=== PATIENT | male | born 1965 | race Caucasian/White ===

== ENCOUNTER 2020-03-25 16:33 | Observation (INO) | payer BC ==
--- NOTE | 2020-03-25 16:45 | EDM.PDOC ---
ED HPI GENERAL MEDICAL PROBLEM - General Chief Complaint: Chest Pain Stated Complaint: ARMS TINGLING, HEARTBURN Time Seen by Provider: 03/25/20 16:40 Source of Information: Reports: Patient History Limitations: Reports: No Limitations - History of Present Illness INITIAL COMMENTS - FREE TEXT/NARRATIVE: Patient is a 54-year-old male who presents today for left-sided chest pain with tingling to his left arm. Pain states the pain is been there on and off for the past 3 days not associated with any events. Patient not take any medication for the pain. Patient denies any shortness of breath fever chills or cough. Patient states that he does not regularly follow-up with your doctor and did have high blood pressure in the few years ago but stopped taking medications. Chest Pain Score (Numeric/FACES): 5 - Related Data Allergies Allergy/AdvReac Type Severity Reaction Status Date / Time No Known Allergies Allergy Verified 03/25/20 20:45 Home Meds: Home Meds Adalimumab [Humira Pen] 1 dose INJECT ASDIRECTED 03/25/20 [History] Acetaminophen [Tylenol] 650 mg PO Q4H PRN tablet 03/26/20 [Rx] Aspirin 81 mg PO DAILY tab.chew 03/26/20 [Rx] amLODIPine [Norvasc] 5 mg PO DAILY 30 Days #30 tablet 03/26/20 [Rx] atorvaSTATin [Lipitor] 10 mg PO BEDTIME 30 Days #30 tab 03/26/20 [Rx] ED ROS GENERAL - Review of Systems Review Of Systems: Comprehensive ROS is negative, except as noted in HPI. ED EXAM, GENERAL - Physical Exam Exam: See Below Exam Limited By: No Limitations General Appearance: Alert, WD/WN, No Apparent Distress Head: Atraumatic Neck: Normal Inspection Respiratory/Chest: No Respiratory Distress, Lungs Clear, Normal Breath Sounds, No Accessory Muscle Use Cardiovascular: Normal Peripheral Pulses, Regular Rate, Rhythm GI/Abdominal: Normal Bowel Sounds, Soft, Non-Tender Extremities: Normal Inspection Neurological: Alert, Oriented Skin Exam: No Rash #1 Interpretation EKG Date: 03/25/20 Time: 16:35 Rhythm: NSR Rate (Beats/Min): 80 [place]: Normal ST-T: Normal Course - Vital Signs Last Recorded V/S: Last Vital Signs Temp 97.4 F 03/26/20 11:04 Pulse 65 03/26/20 11:04 Resp 13 03/26/20 11:04 BP 135/89 03/26/20 11:04 Pulse Ox 96 03/26/20 11:04 - Orders/Labs/Meds Labs: Laboratory Tests 03/25/20 03/25/20 03/25/20 Range/Units 16:41 16:41 16:41 WBC 7.26 (4.0-11.0) K/uL RBC 5.47 (4.50-5.90) M/uL Hgb 15.7 (13.0-17.0) g/dL Hct 47.0 (38.0-50.0) % MCV 85.9 (80.0-98.0) fL MCH 28.7 (27.0-32.0) pg MCHC 33.4 (31.0-37.0) g/dL RDW Std Deviation 46.8 (28.0-62.0) fl RDW Coeff of Franko 15 (11.0-15.0) % Plt Count 200 (150-400) K/uL MPV 10.30 (7.40-12.00) fL Neut % (Auto) 62.7 (48.0-80.0) % Lymph % (Auto) 25.3 (16.0-40.0) % Brule % (Auto) 8.5 (0.0-15.0) % Eos % (Auto) 3.4 (0.0-7.0) % Baso % (Auto) 0.1 (0.0-1.5) % Neut # (Auto) 4.5 (1.4-5.7) K/uL Lymph # (Auto) 1.8 (0.6-2.4) K/uL Brule # (Auto) 0.6 (0.0-0.8) K/uL Eos # (Auto) 0.3 (0.0-0.7) K/uL Baso # (Auto) 0.0 (0.0-0.1) K/uL Nucleated RBC % 0.0 /100WBC Nucleated RBCs # 0 K/uL Sodium 137 (136-148) mmol/L Potassium 3.7 (3.5-5.1) mmol/L Chloride 102 (98-107) mmol/L Carbon Dioxide 24.8 (21.0-32.0) mmol/L BUN 14 (7.0-18.0) mg/dL Creatinine 1.2 (0.8-1.3) mg/dL Est Cr Clr Drug Dosing 75.44 mL/min Estimated GFR (MDRD) > 60.0 ml/min Glucose 135 H (74-106) mg/dL Calcium 9.2 (8.5-10.1) mg/dL Total Bilirubin 0.3 (0.2-1.0) mg/dL AST 19 (15-37) IU/L ALT 53 (14-63) IU/L Alkaline Phosphatase 68 (46-116) U/L Creatine Kinase 138 (26-308) U/L Troponin I < 0.050 (0.000-0.056) ng/mL B-Natriuretic Peptide 25 (<100) PG/ML Total Protein 7.7 (6.4-8.2) g/dL Albumin 3.8 (3.4-5.0) g/dL Globulin 3.9 (2.6-4.0) g/dL Albumin/Globulin Ratio 1.0 (0.9-1.6) Influenza Type A RNA (NEGATIVE) Influenza Type B RNA (NEGATIVE) SARS-CoV-2 RNA ([place]) (NEGATIVE) 03/25/20 Range/Units 17:45 WBC (4.0-11.0) K/uL RBC (4.50-5.90) M/uL Hgb (13.0-17.0) g/dL Hct (38.0-50.0) % MCV (80.0-98.0) fL MCH (27.0-32.0) pg MCHC (31.0-37.0) g/dL RDW Std Deviation (28.0-62.0) fl RDW Coeff of Franko (11.0-15.0) % Plt Count (150-400) K/uL MPV (7.40-12.00) fL Neut % (Auto) (48.0-80.0) % Lymph % (Auto) (16.0-40.0) % Brule % (Auto) (0.0-15.0) % Eos % (Auto) (0.0-7.0) % Baso % (Auto) (0.0-1.5) % Neut # (Auto) (1.4-5.7) K/uL Lymph # (Auto) (0.6-2.4) K/uL Brule # (Auto) (0.0-0.8) K/uL Eos # (Auto) (0.0-0.7) K/uL Baso # (Auto) (0.0-0.1) K/uL Nucleated RBC % /100WBC Nucleated RBCs # K/uL Sodium (136-148) mmol/L Potassium (3.5-5.1) mmol/L Chloride (98-107) mmol/L Carbon Dioxide (21.0-32.0) mmol/L BUN (7.0-18.0) mg/dL Creatinine (0.8-1.3) mg/dL Est Cr Clr Drug Dosing mL/min Estimated GFR (MDRD) ml/min Glucose (74-106) mg/dL Calcium (8.5-10.1) mg/dL Total Bilirubin (0.2-1.0) mg/dL AST (15-37) IU/L ALT (14-63) IU/L Alkaline Phosphatase (46-116) U/L Creatine Kinase (26-308) U/L Troponin I (0.000-0.056) ng/mL B-Natriuretic Peptide (<100) PG/ML Total Protein (6.4-8.2) g/dL Albumin (3.4-5.0) g/dL Globulin (2.6-4.0) g/dL Albumin/Globulin Ratio (0.9-1.6) Influenza Type A RNA NEGATIVE (NEGATIVE) Influenza Type B RNA NEGATIVE (NEGATIVE) SARS-CoV-2 RNA ([place]) NEGATIVE (NEGATIVE) Meds: Medications Discontinued Medications Generic Name Dose Route Start Last Admin Trade Name Freq PRN Reason Stop Dose Admin Acetaminophen 650 mg 03/25/20 20:01 Tylenol PO Q4H PRN Pain (Mild 1-3)/fever Albuterol/Ipratropium 3 ml 03/25/20 20:01 Duoneb 3.0-0.5 Mg/3 Ml NEB Q4HRRT PRN Shortness Of Breath/wheezing Amlodipine Besylate 5 mg 03/25/20 20:15 03/26/20 09:00 Norvasc PO 5 mg DAILY SRI Administration Aspirin 325 mg 03/25/20 16:51 03/25/20 17:04 Aspirin PO 03/25/20 16:52 Not Given ONETIME ONE Aspirin 324 mg 03/25/20 17:03 03/25/20 17:07 Aspirin PO 03/25/20 17:04 324 mg ONETIME ONE Administration Aspirin 81 mg 03/26/20 09:00 03/26/20 08:50 Aspirin PO 81 mg DAILY SRI Administration Atorvastatin Calcium 20 mg 03/26/20 21:00 Lipitor PO BEDTIME SRI Departure - Departure Time of Disposition: 18:45 Disposition: Refer to Observation Condition: Good Clinical Impression: Chest pain - Assessment/Plan Assessment:: Is a 54-year-old male presents today for left-sided pain. Patient has a heart score of 3 will likely obtain x-ray trend troponins and possibly discharged home. Patient also given aspirin in ED.
[2020-03-25] MEDS ORDERED: Aspirin 325 MG Tab PO ONE (16:51)
[2020-03-25] MEDS ORDERED: Aspirin 81 MG Tab.Chew PO ONE (17:03)
--- NOTE | 2020-03-25 17:33 | CR ---
INDICATION: chest pain TECHNIQUE: Chest 1 view. COMPARISON: 06/06/14 FINDINGS: Cardiovascular and mediastinum: Heart size and vasculature are normal in caliber and appearance. Mediastinum is within normal limits. Lungs and pleural space: Lungs are clear. No sign of infiltrate or mass. No sign of pleural effusion. No pneumothorax. Bones and soft tissues: No significant findings. IMPRESSION: Unremarkable chest. Dictated by: Fei Bey MD @ 03/25/2020 17:32:13 (Electronically Signed)
[2020-03-25 17:42] LABS: BLOOD UREA NITROGEN,BUN 14 mg/dL (7.0-18.0); CARBON DIOXIDE,CO2 24.8 mmol/L (21.0-32.0); GLUCOSE RANDOM 135 mg/dL (74-106)
[2020-03-25 17:51] LABS: CHLORIDE,CL 102 mmol/L (98-107); POTASSIUM,K 3.7 mmol/L (3.5-5.1); SODIUM,NA 137 mmol/L (136-148)
[2020-03-25 18:32] LABS: CORONAVIRUS COVID-19 NAA NEGATIVE (NEGATIVE); INFLUENZA A NAA NEGATIVE (NEGATIVE); INFLUENZA B NAA NEGATIVE (NEGATIVE)
[2020-03-25] MEDS ORDERED: Albuterol/Ipratropium 3.0-0.5 MG/3 ML Neb Soln NEB PRN (20:01)
[2020-03-25] MEDS ORDERED: Acetaminophen 325 MG Tab PO PRN (20:01)
[2020-03-25] MEDS: amLODIPine 5 MG Tab PO SCH (21:10)
--- NOTE | 2020-03-25 21:30 | PCM.HP.2 ---
H&P History of Present Illness - General Date of Service: 03/25/20 Admit Problem/Dx: Admission Diagnosis/Problem Admission Diagnosis/Problem Chest pain in adult - History of Present Illness Initial Comments - Free Text/Narative: Patient is a 54-year-old male with PMH of HTN no on any medications, Inflammatory bowel disease on Humira every 2 weeks, High BMI, medical non- compliance who presents today for left-sided chest pain with tingling to his left arm. Per patient the pain has been there on and off for the past 3 days not associated with any events, aggravated by exertion. Patient not take any medication for the pain. Patient denies any shortness of breath fever chills or cough. Patient hasn't seen any doctor in few years, states he was supposed to be taking medication for hs high BP but has stopped taking them. Denied any h/o stroke, ACS. In the ER EKG was done which showed no acte ischemic changes, mild flattening of T waves, CXR was negative for any acute process, COVID negative.. 1st troponin was negative. Patient was admitted for further care. Chest Pain Score (Numeric/FACES): 5 - Related Data Allergies/Adverse Reactions: Allergies Allergy/AdvReac Type Severity Reaction Status Date / Time No Known Allergies Allergy Verified 03/25/20 20:45 Home Medications: Home Meds Adalimumab [Humira Pen] 1 dose INJECT ASDIRECTED 03/25/20 [History] Past Medical History HEENT History: Reports: None Cardiovascular History: Reports: None Respiratory History: Reports: None Gastrointestinal History: Reports: Other (See Below) Other Gastrointestinal History: ulcertive colitis Genitourinary History: Reports: None Musculoskeletal History: Reports: None Neurological History: Reports: None Psychiatric History: Reports: None Endocrine/Metabolic History: Reports: None Hematologic History: Reports: None Oncologic (Cancer) History: Reports: None Dermatologic History: Reports: None - Infectious Disease History Infectious Disease History: Reports: None Social & Family History - Tobacco Use Tobacco Use Status *Q: Never Tobacco User - Caffeine Use Caffeine Use: Reports: None - Recreational Drug Use Recreational Drug Use: No H&P Review of Systems - Review of Systems: Review Of Systems: See Below General: Denies: Fever, Chills, Malaise Pulmonary: Denies: Shortness of Breath, Wheezing Cardiovascular: Reports: Chest Pain (improved). Denies: Palpitations, Dyspnea on Exertion, Lightheadedness, Syncope Gastrointestinal: Denies: Abdominal Pain, Anorexia, Black Stool Genitourinary: Denies: Dysuria, Frequency, Burning Exam - Exam Exam: See Below - Vital Signs Vital Signs: Last Vital Signs Temp 36.8 C 03/25/20 20:25 Pulse 71 03/25/20 20:25 Resp 16 03/25/20 20:25 BP 135/85 03/25/20 21:10 Pulse Ox 96 03/25/20 20:25 Weight: 117.934 kg - Exam Quality Assessment: Supplemental Oxygen General: Alert, Oriented Neck: Supple, Trachea Midline Lungs: Clear to Auscultation, Normal Respiratory Effort Cardiovascular: Regular Rate, Regular Rhythm, Normal S1, Normal S2 GI/Abdominal Exam: Normal Bowel Sounds, Soft, Distended - Patient Data Lab Results Last 24 hrs: Laboratory Results - last 24 hr 03/25/20 03/25/20 03/25/20 Range/Units 16:41 16:41 16:41 WBC 7.26 (4.0-11.0) K/uL RBC 5.47 (4.50-5.90) M/uL Hgb 15.7 (13.0-17.0) g/dL Hct 47.0 (38.0-50.0) % MCV 85.9 (80.0-98.0) fL MCH 28.7 (27.0-32.0) pg MCHC 33.4 (31.0-37.0) g/dL RDW Std Deviation 46.8 (28.0-62.0) fl RDW Coeff of Franko 15 (11.0-15.0) % Plt Count 200 (150-400) K/uL MPV 10.30 (7.40-12.00) fL Neut % (Auto) 62.7 (48.0-80.0) % Lymph % (Auto) 25.3 (16.0-40.0) % [place]win % (Auto) 8.5 (0.0-15.0) % Eos % (Auto) 3.4 (0.0-7.0) % Baso % (Auto) 0.1 (0.0-1.5) % Neut # (Auto) 4.5 (1.4-5.7) K/uL Lymph # (Auto) 1.8 (0.6-2.4) K/uL [place]win # (Auto) 0.6 (0.0-0.8) K/uL Eos # (Auto) 0.3 (0.0-0.7) K/uL Baso # (Auto) 0.0 (0.0-0.1) K/uL Nucleated RBC % 0.0 /100WBC Nucleated RBCs # 0 K/uL Sodium 137 (136-148) mmol/L Potassium 3.7 (3.5-5.1) mmol/L Chloride 102 (98-107) mmol/L Carbon Dioxide 24.8 (21.0-32.0) mmol/L BUN 14 (7.0-18.0) mg/dL Creatinine 1.2 (0.8-1.3) mg/dL Est Cr Clr Drug Dosing 75.44 mL/min Estimated GFR (MDRD) > 60.0 ml/min Glucose 135 H (74-106) mg/dL Calcium 9.2 (8.5-10.1) mg/dL Total Bilirubin 0.3 (0.2-1.0) mg/dL AST 19 (15-37) IU/L ALT 53 (14-63) IU/L Alkaline Phosphatase 68 (46-116) U/L Creatine Kinase 138 (26-308) U/L Troponin I < 0.050 (0.000-0.056) ng/mL B-Natriuretic Peptide 25 (<100) PG/ML Total Protein 7.7 (6.4-8.2) g/dL Albumin 3.8 (3.4-5.0) g/dL Globulin 3.9 (2.6-4.0) g/dL Albumin/Globulin Ratio 1.0 (0.9-1.6) Influenza Type A RNA (NEGATIVE) Influenza Type B RNA (NEGATIVE) SARS-CoV-2 RNA ([place]) (NEGATIVE) 03/25/20 03/25/20 Range/Units 17:45 20:15 WBC (4.0-11.0) K/uL RBC (4.50-5.90) M/uL Hgb (13.0-17.0) g/dL Hct (38.0-50.0) % MCV (80.0-98.0) fL MCH (27.0-32.0) pg MCHC (31.0-37.0) g/dL RDW Std Deviation (28.0-62.0) fl RDW Coeff of Franko (11.0-15.0) % Plt Count (150-400) K/uL MPV (7.40-12.00) fL Neut % (Auto) (48.0-80.0) % Lymph % (Auto) (16.0-40.0) % [place]win % (Auto) (0.0-15.0) % Eos % (Auto) (0.0-7.0) % Baso % (Auto) (0.0-1.5) % Neut # (Auto) (1.4-5.7) K/uL Lymph # (Auto) (0.6-2.4) K/uL [place]win # (Auto) (0.0-0.8) K/uL Eos # (Auto) (0.0-0.7) K/uL Baso # (Auto) (0.0-0.1) K/uL Nucleated RBC % /100WBC Nucleated RBCs # K/uL Sodium (136-148) mmol/L Potassium (3.5-5.1) mmol/L Chloride (98-107) mmol/L Carbon Dioxide (21.0-32.0) mmol/L BUN (7.0-18.0) mg/dL Creatinine (0.8-1.3) mg/dL Est Cr Clr Drug Dosing mL/min Estimated GFR (MDRD) ml/min Glucose (74-106) mg/dL Calcium (8.5-10.1) mg/dL Total Bilirubin (0.2-1.0) mg/dL AST (15-37) IU/L ALT (14-63) IU/L Alkaline Phosphatase (46-116) U/L Creatine Kinase (26-308) U/L Troponin I < 0.050 (0.000-0.056) ng/mL B-Natriuretic Peptide (<100) PG/ML Total Protein (6.4-8.2) g/dL Albumin (3.4-5.0) g/dL Globulin (2.6-4.0) g/dL Albumin/Globulin Ratio (0.9-1.6) Influenza Type A RNA NEGATIVE (NEGATIVE) Influenza Type B RNA NEGATIVE (NEGATIVE) SARS-CoV-2 RNA ([place]) NEGATIVE (NEGATIVE) Result Diagrams: 03/25/20 16:41 03/25/20 16:41 Sepsis Event Note - Evaluation Sepsis Screening Result: No Definite Risk - Focused Exam Vital Signs: Vital Signs Temp Pulse Resp BP BP Pulse Ox 03/25/20 21:10 135/85 03/25/20 20:25 36.8 C 71 16 140/78 96 03/25/20 18:47 75 18 161/80 H 97 03/25/20 18:10 79 16 158/77 H 97 03/25/20 16:50 36.3 C 80 16 162/82 H 97 - Problem List (1) Chest pain SNOMED Code(s): 46562674 ICD Code: R07.9 - CHEST PAIN, UNSPECIFIED Status: Acute Current Visit: Yes (2) HTN (hypertension) SNOMED Code(s): 42472647 ICD Code: I10 - ESSENTIAL (PRIMARY) HYPERTENSION Status: Acute Current Visit: Yes (3) Inflammatory bowel disease SNOMED Code(s): 14194117 ICD Code: K52.9 - NONINFECTIVE GASTROENTERITIS AND COLITIS, UNSPECIFIED Status: Acute Current Visit: Yes (4) BMI 39.0-39.9,adult SNOMED Code(s): 001858189 ICD Code: Z68.39 - BODY MASS INDEX [BMI] 39.0-39.9, ADULT Status: Acute Current Visit: Yes Problem List Initiated/Reviewed/Updated: Yes Orders Last 24hrs: Active Orders 24 hr Category Date Time Status Patient Status [ADT] Routine ADT 03/25/20 18:32 Active Ambulate [RC] ASDIRECTED Care 03/25/20 20:01 Active Antiembolic Devices [RC] PER UNIT ROUTINE Care 03/25/20 20:03 Active EKG Documentation Completion [RC] STAT Care 03/25/20 16:51 Active Oxygen Therapy [RC] PRN Care 03/25/20 20:01 Active Pulse Oximetry [RC] PRN Care 03/25/20 20:02 Active RT Aerosol Therapy [RC] ASDIRECTED Care 03/25/20 20:03 Active VTE/DVT Education [RC] PER UNIT ROUTINE Care 03/25/20 20:01 Active Vital Signs [RC] Q4H Care 03/25/20 20:01 Active Heart Healthy Diet [DIET] Diet 03/25/20 Dinner Active Echo Comp wo Cont [US] Routine Exams 03/25/20 20:03 Ordered GLYCOSYLATED HEMOGLOBIN,HGBA1C [CHEM] AM Lab 03/26/20 05:11 Ordered LIPID PANEL [CHEM] AM Lab 03/26/20 05:11 Ordered TROPONIN I [CHEM] Routine Lab 03/25/20 23:00 Ordered TSH [CHEM] AM Lab 03/26/20 05:11 Ordered Acetaminophen [TylenoL] Med 03/25/20 20:01 Active 650 mg PO Q4H PRN Albuterol/Ipratropium [DuoNeb 3.0-0.5 MG/3 ML] Med 03/25/20 20:01 Active 3 ml NEB Q4HRRT PRN Aspirin Med 03/26/20 09:00 Active 81 mg PO DAILY amLODIPine [Norvasc] Med 03/25/20 20:15 Active 5 mg PO DAILY atorvaSTATin [Lipitor] Med 03/26/20 21:00 Active 20 mg PO BEDTIME Sequential Compression Device [OM.PC] Per Unit Routine Oth 03/25/20 20:02 Ordered Resuscitation Status Routine Resus Stat 03/25/20 20:01 Ordered Medication Orders Acetaminophen (Tylenol) 650 mg PO Q4H PRN PRN Reason: Pain (Mild 1-3)/fever Albuterol/Ipratropium (Duoneb 3.0-0.5 Mg/3 Ml) 3 ml NEB Q4HRRT PRN PRN Reason: Shortness Of Breath/wheezing Amlodipine Besylate (Norvasc) 5 mg PO DAILY [facility] Last Admin: 03/25/20 21:10 Dose: 5 mg Documented by: PASTGEN Aspirin (Aspirin) 81 mg PO DAILY [facility] Atorvastatin Calcium (Lipitor) 20 mg PO BEDTIME [facility] Assessment/Plan Comment:: 54 y/o M admitted for ACS rule out, HEART score 4 admit to tele trend troponin start Antihypertensive Amlodipine for now Low dose ASA, statin Check HbA1c, TSH, Lipid panel Check UA Obtain 2D ECHO Needs a stress test which is not available at the hospital, so has to be done ou tpatient basis.
[2020-03-26 06:05] LABS: HEMOGLOBIN A1C 5.5 %
[2020-03-26] MEDS ORDERED: Aspirin 81 MG Tab.Chew PO SCH (09:00)
[2020-03-26] MEDS: amLODIPine 5 MG Tab PO SCH (09:00)
--- NOTE | 2020-03-26 09:22 | PCM.DCSUM1 ---
<Roshan Laura - Last Filed: 03/26/20 10:22> Discharge Summary - Hospital Course Free Text/Narrative:: Patient is a 54-year-old male with a significant past medical history of hypertension uncontrolled and noncompliant with medication, ulcerative colitis on Humira and morbid obesity; presenting to the ED on March 25, 2020 secondary to left-sided chest pain with left arm numbness and tingling for 3 days. Patient endorses no significant aggravating/alleviating factors and mention pain was constant and felt more like a pressure. ED course: EKG suggested no ST elevation/depression however some nonspecific T wave changes. Chest x-ray negative. Blood pressure marginally elevated at 160/90. Hospital course: Admitted overnight for ACS rule out: Troponin x3 - telemetry otherwise unremarkable. Started on amlodipine 5 good response with final blood pressure 120/75. Laboratory otherwise suggest no acute derangements CBC/CMP negative. A1c 5.5 lipid panel also nominal. Covid negative. Echocardiogram ordered: Results pending Discussed elevated blood pressure ramifications and medical noncompliance. Patient understood and agreed. Patient set up with follow-up with PCP Outpatient prescription for stress test provided to patient. Sent home with Atorvastatin 10, amlodipine 5 and advised to continue 81 mg ASA daily Patient discharged in stable condition. Disposition Home: Condition: Stable Follow-up: PCP - Discharge Data Discharge Date: 03/26/20 Discharge Disposition: Home, Self-Care 01 Condition: Good - Referral to Home Health Primary Care Physician: PCP None - Patient Instructions Diet: Heart Healthy Diet - Discharge Plan *PRESCRIPTION DRUG MONITORING PROGRAM REVIEWED*: No *COPY OF PRESCRIPTION DRUG MONITORING REPORT IN PATIENT BRANDON: No Prescriptions/Med Rec: atorvaSTATin [Lipitor] 10 mg PO BEDTIME 30 Days #30 tab amLODIPine [Norvasc] 5 mg PO DAILY 30 Days #30 tablet Home Medications: Home Meds Adalimumab [Humira Pen] 1 dose INJECT ASDIRECTED 03/25/20 [History] Acetaminophen [Tylenol] 650 mg PO Q4H PRN tablet 03/26/20 [Rx] Aspirin 81 mg PO DAILY tab.chew 03/26/20 [Rx] amLODIPine [Norvasc] 5 mg PO DAILY 30 Days #30 tablet 03/26/20 [Rx] atorvaSTATin [Lipitor] 10 mg PO BEDTIME 30 Days #30 tab 03/26/20 [Rx] Patient Handouts: Nonspecific Chest Pain, Adult, [id number], Hypertension, Adult, [id number], Atorvastatin tablets, Amlodipine Oral Tablets Forms: ED Department Discharge Referrals: Justin Fuentes MD [Ordering Only Provider] - 04/02/20 10:30 am - Discharge Summary/Plan Comment DC Time >30 min.: No - Patient Data Vitals - Most Recent: Last Vital Signs Temp 97.8 F 03/26/20 07:32 Pulse 70 03/26/20 07:32 Resp 12 03/26/20 07:32 BP 139/81 03/26/20 09:00 Pulse Ox 96 03/26/20 07:32 Weight - Most Recent: 131.5 kg I&O - Last 24 hours: Intake & Output 03/25/20 03/26/20 03/26/20 22:59 06:59 14:59 Intake Total 350 Output Total 0 Balance 350 Lab Results - Last 24 hrs: Laboratory Results - last 24 hr 03/25/20 03/25/20 03/25/20 Range/Units 16:41 16:41 16:41 WBC 7.26 (4.0-11.0) K/uL RBC 5.47 (4.50-5.90) M/uL Hgb 15.7 (13.0-17.0) g/dL Hct 47.0 (38.0-50.0) % MCV 85.9 (80.0-98.0) fL MCH 28.7 (27.0-32.0) pg MCHC 33.4 (31.0-37.0) g/dL RDW Std Deviation 46.8 (28.0-62.0) fl RDW Coeff of Franko 15 (11.0-15.0) % Plt Count 200 (150-400) K/uL MPV 10.30 (7.40-12.00) fL Neut % (Auto) 62.7 (48.0-80.0) % Lymph % (Auto) 25.3 (16.0-40.0) % Burke % (Auto) 8.5 (0.0-15.0) % Eos % (Auto) 3.4 (0.0-7.0) % Baso % (Auto) 0.1 (0.0-1.5) % Neut # (Auto) 4.5 (1.4-5.7) K/uL Lymph # (Auto) 1.8 (0.6-2.4) K/uL Burke # (Auto) 0.6 (0.0-0.8) K/uL Eos # (Auto) 0.3 (0.0-0.7) K/uL Baso # (Auto) 0.0 (0.0-0.1) K/uL Nucleated RBC % 0.0 /100WBC Nucleated RBCs # 0 K/uL Sodium 137 (136-148) mmol/L Potassium 3.7 (3.5-5.1) mmol/L Chloride 102 (98-107) mmol/L Carbon Dioxide 24.8 (21.0-32.0) mmol/L BUN 14 (7.0-18.0) mg/dL Creatinine 1.2 (0.8-1.3) mg/dL Est Cr Clr Drug Dosing 75.44 mL/min Estimated GFR (MDRD) > 60.0 ml/min Glucose 135 H (74-106) mg/dL Hemoglobin A1c (4.5 - 6.2) % Calcium 9.2 (8.5-10.1) mg/dL Total Bilirubin 0.3 (0.2-1.0) mg/dL AST 19 (15-37) IU/L ALT 53 (14-63) IU/L Alkaline Phosphatase 68 (46-116) U/L Creatine Kinase 138 (26-308) U/L Troponin I < 0.050 (0.000-0.056) ng/mL B-Natriuretic Peptide 25 (<100) PG/ML Total Protein 7.7 (6.4-8.2) g/dL Albumin 3.8 (3.4-5.0) g/dL Globulin 3.9 (2.6-4.0) g/dL Albumin/Globulin Ratio 1.0 (0.9-1.6) Triglycerides (0-200) mg/dL Cholesterol (50-200) mg/dL LDL Cholesterol, Calc (60-180) mg/dL VLDL Cholesterol (5-55) mg/dL HDL Cholesterol (40-60) mg/dL Cholesterol/HDL Ratio (3.3-6.0) TSH 3rd Generation (0.36-3.74) uIU/mL Influenza Type A RNA (NEGATIVE) Influenza Type B RNA (NEGATIVE) SARS-CoV-2 RNA ([place]) (NEGATIVE) 03/25/20 03/25/20 03/25/20 Range/Units 17:45 20:15 23:00 WBC (4.0-11.0) K/uL RBC (4.50-5.90) M/uL Hgb (13.0-17.0) g/dL Hct (38.0-50.0) % MCV (80.0-98.0) fL MCH (27.0-32.0) pg MCHC (31.0-37.0) g/dL RDW Std Deviation (28.0-62.0) fl RDW Coeff of Franko (11.0-15.0) % Plt Count (150-400) K/uL MPV (7.40-12.00) fL Neut % (Auto) (48.0-80.0) % Lymph % (Auto) (16.0-40.0) % Burke % (Auto) (0.0-15.0) % Eos % (Auto) (0.0-7.0) % Baso % (Auto) (0.0-1.5) % Neut # (Auto) (1.4-5.7) K/uL Lymph # (Auto) (0.6-2.4) K/uL Burke # (Auto) (0.0-0.8) K/uL Eos # (Auto) (0.0-0.7) K/uL Baso # (Auto) (0.0-0.1) K/uL Nucleated RBC % /100WBC Nucleated RBCs # K/uL Sodium (136-148) mmol/L Potassium (3.5-5.1) mmol/L Chloride (98-107) mmol/L Carbon Dioxide (21.0-32.0) mmol/L BUN (7.0-18.0) mg/dL Creatinine (0.8-1.3) mg/dL Est Cr Clr Drug Dosing mL/min Estimated GFR (MDRD) ml/min Glucose (74-106) mg/dL Hemoglobin A1c (4.5 - 6.2) % Calcium (8.5-10.1) mg/dL Total Bilirubin (0.2-1.0) mg/dL AST (15-37) IU/L ALT (14-63) IU/L Alkaline Phosphatase (46-116) U/L Creatine Kinase (26-308) U/L Troponin I < 0.050 < 0.050 (0.000-0.056) ng/mL B-Natriuretic Peptide (<100) PG/ML Total Protein (6.4-8.2) g/dL Albumin (3.4-5.0) g/dL Globulin (2.6-4.0) g/dL Albumin/Globulin Ratio (0.9-1.6) Triglycerides (0-200) mg/dL Cholesterol (50-200) mg/dL LDL Cholesterol, Calc (60-180) mg/dL VLDL Cholesterol (5-55) mg/dL HDL Cholesterol (40-60) mg/dL Cholesterol/HDL Ratio (3.3-6.0) TSH 3rd Generation (0.36-3.74) uIU/mL Influenza Type A RNA NEGATIVE (NEGATIVE) Influenza Type B RNA NEGATIVE (NEGATIVE) SARS-CoV-2 RNA ([place]) NEGATIVE (NEGATIVE) 03/26/20 03/26/20 Range/Units 05:49 05:49 WBC (4.0-11.0) K/uL RBC (4.50-5.90) M/uL Hgb (13.0-17.0) g/dL Hct (38.0-50.0) % MCV (80.0-98.0) fL MCH (27.0-32.0) pg MCHC (31.0-37.0) g/dL RDW Std Deviation (28.0-62.0) fl RDW Coeff of Franko (11.0-15.0) % Plt Count (150-400) K/uL MPV (7.40-12.00) fL Neut % (Auto) (48.0-80.0) % Lymph % (Auto) (16.0-40.0) % Burke % (Auto) (0.0-15.0) % Eos % (Auto) (0.0-7.0) % Baso % (Auto) (0.0-1.5) % Neut # (Auto) (1.4-5.7) K/uL Lymph # (Auto) (0.6-2.4) K/uL Burke # (Auto) (0.0-0.8) K/uL Eos # (Auto) (0.0-0.7) K/uL Baso # (Auto) (0.0-0.1) K/uL Nucleated RBC % /100WBC Nucleated RBCs # K/uL Sodium (136-148) mmol/L Potassium (3.5-5.1) mmol/L Chloride (98-107) mmol/L Carbon Dioxide (21.0-32.0) mmol/L BUN (7.0-18.0) mg/dL Creatinine (0.8-1.3) mg/dL Est Cr Clr Drug Dosing mL/min Estimated GFR (MDRD) ml/min Glucose (74-106) mg/dL Hemoglobin A1c 5.5 (4.5 - 6.2) % Calcium (8.5-10.1) mg/dL Total Bilirubin (0.2-1.0) mg/dL AST (15-37) IU/L ALT (14-63) IU/L Alkaline Phosphatase (46-116) U/L Creatine Kinase (26-308) U/L Troponin I (0.000-0.056) ng/mL B-Natriuretic Peptide (<100) PG/ML Total Protein (6.4-8.2) g/dL Albumin (3.4-5.0) g/dL Globulin (2.6-4.0) g/dL Albumin/Globulin Ratio (0.9-1.6) Triglycerides 69 (0-200) mg/dL Cholesterol 168 (50-200) mg/dL LDL Cholesterol, Calc 91 (60-180) mg/dL VLDL Cholesterol 13 (5-55) mg/dL HDL Cholesterol 63 H (40-60) mg/dL Cholesterol/HDL Ratio 2.7 L (3.3-6.0) TSH 3rd Generation 2.12 (0.36-3.74) uIU/mL Influenza Type A RNA (NEGATIVE) Influenza Type B RNA (NEGATIVE) SARS-CoV-2 RNA ([place]) (NEGATIVE) Med Orders - Current: Current Medications Acetaminophen (Tylenol) 650 mg PO Q4H PRN PRN Reason: Pain (Mild 1-3)/fever Albuterol/Ipratropium (Duoneb 3.0-0.5 Mg/3 Ml) 3 ml NEB Q4HRRT PRN PRN Reason: Shortness Of Breath/wheezing Amlodipine Besylate (Norvasc) 5 mg PO DAILY [facility] Last Admin: 03/26/20 09:00 Dose: 5 mg Documented by: Aspirin (Aspirin) 81 mg PO DAILY [facility] Last Admin: 03/26/20 08:50 Dose: 81 mg Documented by: Atorvastatin Calcium (Lipitor) 20 mg PO BEDTIME SRI Discontinued Medications Aspirin (Aspirin) 325 mg PO ONETIME ONE Stop: 03/25/20 16:52 Last Admin: 03/25/20 17:04 Dose: Not Given Documented by: Aspirin (Aspirin) 324 mg PO ONETIME ONE Stop: 03/25/20 17:04 Last Admin: 03/25/20 17:07 Dose: 324 mg Documented by: <Macey Emerson - Last Filed: 03/27/20 10:57> Discharge Summary - Hospital Course Free Text/Narrative:: I have seen and evaluated the patient and agree with the residents note unless specified in my note - Referral to Home Health Primary Care Physician: PCP None - Discharge Diagnosis/Problem(s) (1) Chest pain SNOMED Code(s): 77380592 ICD Code: R07.9 - CHEST PAIN, UNSPECIFIED Status: Acute (2) HTN (hypertension) SNOMED Code(s): 39975551 ICD Code: I10 - ESSENTIAL (PRIMARY) HYPERTENSION Status: Acute (3) Inflammatory bowel disease SNOMED Code(s): 77530452 ICD Code: K52.9 - NONINFECTIVE GASTROENTERITIS AND COLITIS, UNSPECIFIED Status: Acute (4) BMI 39.0-39.9,adult SNOMED Code(s): 154371438 ICD Code: Z68.39 - BODY MASS INDEX [BMI] 39.0-39.9, ADULT Status: Acute - Patient Data Vitals - Most Recent: Last Vital Signs Temp 36.3 C 03/26/20 11:04 Pulse 65 03/26/20 11:04 Resp 13 03/26/20 11:04 BP 135/89 03/26/20 11:04 Pulse Ox 96 03/26/20 11:04 Med Orders - Current: Current Medications Discontinued Medications Acetaminophen (Tylenol) 650 mg PO Q4H PRN PRN Reason: Pain (Mild 1-3)/fever Albuterol/Ipratropium (Duoneb 3.0-0.5 Mg/3 Ml) 3 ml NEB Q4HRRT PRN PRN Reason: Shortness Of Breath/wheezing Amlodipine Besylate (Norvasc) 5 mg PO DAILY [facility] Last Admin: 03/26/20 09:00 Dose: 5 mg Documented by: Aspirin (Aspirin) 325 mg PO ONETIME ONE Stop: 03/25/20 16:52 Last Admin: 03/25/20 17:04 Dose: Not Given Documented by: Aspirin (Aspirin) 324 mg PO ONETIME ONE Stop: 03/25/20 17:04 Last Admin: 03/25/20 17:07 Dose: 324 mg Documented by: Aspirin (Aspirin) 81 mg PO DAILY [facility] Last Admin: 03/26/20 08:50 Dose: 81 mg Documented by: Atorvastatin Calcium (Lipitor) 20 mg PO BEDTIME [facility]
[2020-03-26 11:05] VITALS: BP 135/89; PULSE 65
[2020-03-26] MEDS ORDERED: atorvaSTATin 20 MG Tab PO SCH (21:00)
--- NOTE | 2020-03-27 11:24 | ECHO ---
EXAM DATE: 03/25/20 PATIENT'S AGE: 54 The ECHO report has been scanned into [employer] and can be seen in this patient's EMR (Electronic Medical Record) under the REPORTS section. The report has also been scanned into PACS. RON
== END 2020-03-26 11:28 | disposition home or self-care (01) ==
LOC: MW.ED 16:33 → MW.MS 18:32
PROVIDERS: ADMIT Student in an Organized Health Care Education/Training Program; ATTEND Student in an Organized Health Care Education/Training Program
DX: R07.9 Chest pain, unspecified (principal); I10 Essential (primary) hypertension; K52.9 Noninfective gastroenteritis and colitis, unspecified; Z20.822 Contact with and (suspected) exposure to COVID-19
CPT/HCPCS: 0240U; 36415; 71046; 80053; 80061; 82550; 83036; 83880; 84443; 84484; 85025; 93005; 93306; 99285; A9270; G0378; 93010; 99217; 99218; 99284

== ENCOUNTER 2021-04-25 00:16 | Emergency (ER) | payer BC ==
[2021-04-25] MEDS ORDERED: Ketorolac 30 MG/ML SDV IM ONE (00:49)
[2021-04-25] MEDS ORDERED: Cyclobenzaprine 10 MG Tab PO ONE (00:49)
[2021-04-25] MEDS ORDERED: Ibuprofen 600 MG Tab PO ONE (02:05)
[2021-04-25 02:47] VITALS: BP 134/91; PULSE 88
== END 2021-04-25 02:30 | disposition home or self-care (01) ==
LOC: MW.ED 00:16
DX: S00.03XA Contusion of scalp, initial encounter (principal); M94.0 Chondrocostal junction syndrome [Tietze]; I10 Essential (primary) hypertension; W00.0XXA Fall on same level due to ice and snow, initial encounter
CPT/HCPCS: 71111; 96372; 99283; A9270; J1885